=== PATIENT | male | born 1960 | race Hispanic/Latino ===

== ENCOUNTER 2019-07-01 06:05 | Inpatient (IN) | payer SELFPAY ==
[~2019-07-01] VITALS: Ht 167.6 cm; Wt 78.7 kg
[2019-07-01 00:03] VITALS: BP 149/88
[2019-07-01 07:00] VITALS: BP 125/73
[2019-07-01 08:10] LABS: BASOPHILS % (AUTO) 0.4 % (0.0-5.0); HEMATOCRIT 32.7 % (42-54); LYMPHOCYTES % (AUTO) 5.3 % (21.0-51.0); MEAN CORPUSCULAR HEMOGLOBIN 31.1 pg (27.0-33.0); MEAN CORPUSCULAR HGB CONC 32.7 g/dL (32.0-36.0); MEAN CORPUSCULAR VOLUME 95.1 fL (79-99); MONOCYTES % (AUTO) 4.2 % (3.0-13.0); NEUTROPHILS % (AUTO) 89.6 % (40.0-77.0); PLATELET COUNT (AUTO) 201 K/uL (130-400); RED BLOOD CELL COUNT(AUTO) 3.44 MIL/uL (4.50-6.20); RED CELL DISTRIBUTION WIDTH 12.8 % (11.0-15.5); WHITE BLOOD COUNT (AUTO) 16.7 K/uL (4.8-10.8)
[2019-07-01 08:28] LABS: CREATININE 1.7 mg/dL (0.5-1.5); POTASSIUM 5.4 mmol/L (3.5-5.1)
[2019-07-01 08:34] LABS: ALBUMIN 3.3 g/dL (3.5-5.0); BILIRUBIN,TOTAL 0.2 mg/dL (0.2-1.0); TOTAL PROTEIN, SERUM 5.9 g/dL (6.0-8.3)
[2019-07-01 08:39] LABS: INR 0.94 (0.85-1.15); PARTIAL THROMBOPLASTIN TIME 26.8 SEC (26.3-35.5); PROTHROMBIN TIME 9.9 SEC (9.6-11.6)
[2019-07-01] MEDS: GUAIFENESIN-DM 200/20 MG 10 ML PO PRN ×3 (08:47→22:57)
[2019-07-01] MEDS ORDERED: LORA0.5T83 PO (09:17)
[2019-07-01] MEDS ORDERED: ATOR20TA65 PO (09:17)
[2019-07-01] MEDS ORDERED: ATEN50TA PO (09:17)
[2019-07-01] MEDS ORDERED: NAPR-1023 PO (09:17)
[2019-07-01] MEDS ORDERED: LISI40TA4 PO (09:17)
[2019-07-01] MEDS ORDERED: ONDA8TAB5 PO (09:17)
[2019-07-01] MEDS ORDERED: METF-526 PO (09:17)
[2019-07-01] MEDS ORDERED: DIPH1TAB24 PO (09:17)
[2019-07-01] MEDS ORDERED: AMLO10TA7 PO (09:17)
[2019-07-01] MEDS ORDERED: CITA10TA13 PO (09:17)
[2019-07-01 11:00] VITALS: BP 153/83
[2019-07-01] MEDS: FAMOTIDINE/PF 20 MG/2 ML VIAL IV SCH ×2 (12:37→20:57)
[2019-07-01] MEDS: SODIUM CHLORIDE 0.9% 1000ML 1,000 ML IV SCH ×2 (12:38→23:44)
[2019-07-01] MEDS: ZOSYN 3.375GM+NS 50ML 50 ML IV SCH ×2 (12:38→17:03)
[2019-07-01] MEDS: INSULIN HUMULIN R 100 UNIT/ML 3ML SQ SCH ×3 (12:45→20:31)
[2019-07-01] MEDS: HYDROMORPHONE 1 MG/1 ML AMP IVP PRN ×2 (12:48→17:15)
[2019-07-01 16:00] VITALS: BP 155/79
[2019-07-01] MEDS ORDERED: LORAZEPAM 0.5 MG TABLET PO PRN (16:15)
[2019-07-01] MEDS ORDERED: IPRATROPIUM/ALBUTEROL SULFATE 3 ML SOLUTION IH PRN (17:15)
[2019-07-01] MEDS ORDERED: IPRATROPIUM/ALBUTEROL SULFATE 3 ML SOLUTION IH ONE (17:19)
[2019-07-01] MEDS ORDERED: METHYLPREDNISOLONE SOD SUCC 40MG/ML 1ML ONE (17:20)
[2019-07-01] MEDS: IPRATROPIUM/ALBUTEROL SULFATE 3 ML SOLUTION IH SCH ×2 (17:22→22:17)
[2019-07-01] MEDS ORDERED: EPINEPHRINE 1 MG/ML AMPULE IM SCH (17:30)
[2019-07-01] MEDS ORDERED: METHYLPREDNISOLONE SOD SUCC 40MG/ML 1ML IVP SCH (17:30)
[2019-07-01] MEDS ORDERED: DiphenhydrAMINE HCL 50 MG/ML VIAL IV SCH (17:45)
[2019-07-01 19:15] VITALS: BP 175/85
[2019-07-01] MEDS ORDERED: DOXYCYCLINE HYCLATE 100 MG TABLET PO SCH (21:00)
[2019-07-01] MEDS: FLUTICASONE PROPIONATE 50MCG/SPRAY 16 GM BOTTLE EN SCH (21:05)
[2019-07-01 21:15] LABS: HEMOGLOBIN A1C 9.2 % (4.0-6.0)
[2019-07-01] MEDS ORDERED: HYDRALAZINE HCL 20 MG/ML VIAL IV PRN (21:15)
[2019-07-02] MEDS: IPRATROPIUM/ALBUTEROL SULFATE 3 ML SOLUTION IH SCH ×6 (02:18→21:12)
[2019-07-02 04:08] VITALS: BP 150/85
[2019-07-02 06:39] LABS: BASOPHILS % (AUTO) 0.2 % (0.0-5.0); LYMPHOCYTES % (AUTO) 4.9 % (21.0-51.0); MEAN CORPUSCULAR HEMOGLOBIN 31.5 pg (27.0-33.0); MEAN CORPUSCULAR HGB CONC 33.6 g/dL (32.0-36.0); MONOCYTES % (AUTO) 2.5 % (3.0-13.0); NEUTROPHILS % (AUTO) 91.9 % (40.0-77.0); PLATELET COUNT (AUTO) 193 K/uL (130-400); RED BLOOD CELL COUNT(AUTO) 2.98 MIL/uL (4.50-6.20); RED CELL DISTRIBUTION WIDTH 12.8 % (11.0-15.5); WHITE BLOOD COUNT (AUTO) 12.8 K/uL (4.8-10.8)
[2019-07-02] MEDS: INSULIN HUMULIN R 100 UNIT/ML 3ML SQ SCH ×4 (06:43→21:03)
[2019-07-02 08:00] VITALS: BP 154/84
[2019-07-02 09:05] LABS: CREATININE 1.8 mg/dL (0.5-1.5); POTASSIUM 4.4 mmol/L (3.5-5.1)
[2019-07-02] MEDS: FAMOTIDINE/PF 20 MG/2 ML VIAL IV SCH ×2 (09:39→20:48)
[2019-07-02] MEDS: AMLODIPINE BESYLATE 5 MG TAB PO SCH (09:40)
[2019-07-02] MEDS: ATENOLOL 50 MG TABLET PO SCH (09:40)
[2019-07-02] MEDS: ATORVASTATIN CALCIUM 20 MG TABLET PO SCH (09:41)
[2019-07-02] MEDS: CITALOPRAM 20 MG TABLET PO SCH (09:41)
[2019-07-02] MEDS: FLUTICASONE PROPIONATE 50MCG/SPRAY 16 GM BOTTLE EN SCH ×2 (09:41→20:51)
[2019-07-02] MEDS ORDERED: INSULIN GLARGINE 100 UNITS/ML 10 ML VIAL SQ SCH (10:00)
[2019-07-02] MEDS: GUAIFENESIN/DEXTROMETHORPHAN 1 EACH TAB.SR.12H PO SCH ×2 (10:16→20:48)
[2019-07-02 11:29] VITALS: BP 156/85
[2019-07-02] MEDS: SODIUM CHLORIDE 0.9% 1000ML 1,000 ML IV SCH (11:47)
--- NOTE | 2019-07-02 14:35 | NUR ---
DC PLAN MEET WITH PATIENT IN ROOM. PER PATIENT, INDEPENDENT WITH ADLS, MOVED FROM [place] AND [facility]IVES WITH [place]IECE, DENIES PROVIDER OR COMMUNITY SERVICES IN USE AND FEELS SAFE TO RETURN HOME ONCE DISCHARGED. Addendum: 07/02/19 at 1440 by ANALISA CARMONA RN CM Amended: Links added.
[2019-07-02 16:00] VITALS: BP 154/82
[2019-07-02] MEDS: LACTULOSE 20 GM/30 ML UDCUP PO PRN (20:48)
[2019-07-02 21:14] VITALS: BP 159/92
[2019-07-02 23:43] VITALS: BP 151/87
[2019-07-03] MEDS: IPRATROPIUM/ALBUTEROL SULFATE 3 ML SOLUTION IH SCH ×5 (01:04→22:04)
[2019-07-03] MEDS: SODIUM CHLORIDE 0.9% 1000ML 1,000 ML IV SCH (01:58)
[2019-07-03 04:27] VITALS: BP 138/76
[2019-07-03 05:07] LABS: BASOPHILS % (AUTO) 0.7 % (0.0-5.0); HEMATOCRIT 26.8 % (42-54); LYMPHOCYTES % (AUTO) 18.4 % (21.0-51.0); MEAN CORPUSCULAR HEMOGLOBIN 31.2 pg (27.0-33.0); MEAN CORPUSCULAR HGB CONC 33.2 g/dL (32.0-36.0); NEUTROPHILS % (AUTO) 73.1 % (40.0-77.0); PLATELET COUNT (AUTO) 213 K/uL (130-400); RED BLOOD CELL COUNT(AUTO) 2.85 MIL/uL (4.50-6.20); RED CELL DISTRIBUTION WIDTH 13.1 % (11.0-15.5); WHITE BLOOD COUNT (AUTO) 11.2 K/uL (4.8-10.8)
[2019-07-03 05:15] LABS: CREATININE 1.6 mg/dL (0.5-1.5); POTASSIUM 4.1 mmol/L (3.5-5.1)
[2019-07-03] MEDS: INSULIN HUMULIN R 100 UNIT/ML 3ML SQ SCH ×4 (06:06→21:51)
[2019-07-03] MEDS: LACTULOSE 20 GM/30 ML UDCUP PO PRN (07:02)
[2019-07-03 07:56] VITALS: BP 148/87
[2019-07-03] MEDS: ATORVASTATIN CALCIUM 20 MG TABLET PO SCH (08:49)
[2019-07-03] MEDS: ATENOLOL 50 MG TABLET PO SCH (08:50)
[2019-07-03] MEDS: CITALOPRAM 20 MG TABLET PO SCH (08:51)
[2019-07-03] MEDS: FAMOTIDINE/PF 20 MG/2 ML VIAL IV SCH ×2 (08:56→21:41)
[2019-07-03] MEDS: GUAIFENESIN/DEXTROMETHORPHAN 1 EACH TAB.SR.12H PO SCH ×2 (09:00→21:41)
[2019-07-03] MEDS: AMLODIPINE BESYLATE 5 MG TAB PO SCH (09:01)
[2019-07-03] MEDS: FLUTICASONE PROPIONATE 50MCG/SPRAY 16 GM BOTTLE EN SCH ×2 (09:02→21:42)
[2019-07-03 11:35] VITALS: BP 153/93
[2019-07-03 15:39] VITALS: BP 148/96
[2019-07-03] MEDS: GUAIFENESIN-DM 200/20 MG 10 ML PO PRN (18:12)
[2019-07-03 19:00] VITALS: BP 158/93
[2019-07-03 23:00] VITALS: BP 158/84
[2019-07-04] MEDS: IPRATROPIUM/ALBUTEROL SULFATE 3 ML SOLUTION IH SCH ×4 (02:00→14:19)
[2019-07-04 03:00] VITALS: BP 152/86
[2019-07-04] MEDS: INSULIN HUMULIN R 100 UNIT/ML 3ML SQ SCH ×2 (06:14→13:25)
[2019-07-04 07:09] LABS: BASOPHILS % (AUTO) 0.8 % (0.0-5.0); HEMATOCRIT 30.2 % (42-54); LYMPHOCYTES % (AUTO) 13.2 % (21.0-51.0); MEAN CORPUSCULAR HEMOGLOBIN 32.1 pg (27.0-33.0); MEAN CORPUSCULAR HGB CONC 34.4 g/dL (32.0-36.0); MEAN CORPUSCULAR VOLUME 93.2 fL (79-99); MONOCYTES % (AUTO) 6.1 % (3.0-13.0); NEUTROPHILS % (AUTO) 79.2 % (40.0-77.0); PLATELET COUNT (AUTO) 227 K/uL (130-400); RED BLOOD CELL COUNT(AUTO) 3.24 MIL/uL (4.50-6.20); WHITE BLOOD COUNT (AUTO) 12.5 K/uL (4.8-10.8)
[2019-07-04 08:00] VITALS: BP 165/96
[2019-07-04] MEDS: ATORVASTATIN CALCIUM 20 MG TABLET PO SCH (08:32)
[2019-07-04] MEDS: GUAIFENESIN/DEXTROMETHORPHAN 1 EACH TAB.SR.12H PO SCH (08:32)
[2019-07-04] MEDS: ATENOLOL 50 MG TABLET PO SCH (08:33)
[2019-07-04] MEDS: AMLODIPINE BESYLATE 5 MG TAB PO SCH (08:38)
[2019-07-04] MEDS: FLUTICASONE PROPIONATE 50MCG/SPRAY 16 GM BOTTLE EN SCH (08:39)
[2019-07-04] MEDS: CITALOPRAM 20 MG TABLET PO SCH (08:39)
[2019-07-04] MEDS: FAMOTIDINE/PF 20 MG/2 ML VIAL IV SCH (08:39)
[2019-07-04 11:40] VITALS: BP 166/92
[2019-07-04] MEDS ORDERED: HYDRALAZINE HCL 25 MG TABLET PO SCH (12:15)
[2019-07-04] MEDS: GUAIFENESIN-DM 200/20 MG 10 ML PO PRN (13:34)
[2019-07-04] MEDS ORDERED: ALBU6.7H9 IH (15:35)
[2019-07-04] MEDS ORDERED: HYDR-4153 PO (15:35)
[2019-07-04 16:00] VITALS: BP 174/91
== END 2019-07-04 17:50 | disposition home or self-care (01) | DRG 202 ==
LOC: 3DH 07:03
PROVIDERS: ADMIT Internal Medicine; ATTEND Internal Medicine
DX: J21.0 Acute bronchiolitis due to respiratory syncytial virus (principal); N17.9 Acute kidney failure, unspecified; T38.0X5A Adverse effect of glucocorticoids and synthetic analogues, initial encounter; S30.1XXA Contusion of abdominal wall, initial encounter; E11.65 Type 2 diabetes mellitus with hyperglycemia; E87.5 Hyperkalemia; E78.5 Hyperlipidemia, unspecified; I10 Essential (primary) hypertension; X58.XXXA Exposure to other specified factors, initial encounter; Z88.8 Allergy status to other drugs, medicaments and biological substances; Z88.6 Allergy status to analgesic agent; Z91.041 Radiographic dye allergy status; Y92.89 Other specified places as the place of occurrence of the external cause; Y93.89 Activity, other specified; Y99.8 Other external cause status
CPT/HCPCS: 36415; 71045; 80048; 80053; 82948; 83036; 84145; 85025; 85610; 85730; 86850; 86900; 86901; 87486; 87581; 87633; 87798; 87804; 94640; 94664; G0378; J0171; J1170; J1200; J1815; J2543; J2920; J3490; J7030

== ENCOUNTER 2020-12-03 16:04 | Inpatient (IN) | payer OTHER ==
[~2020-12-03] VITALS: Ht 170.2 cm; Wt 72.9 kg
[~2020-12-03 16:04] MED LIST: ALBU6.7H9 IH; AMLO-258 PO; ATEN50TA PO; ATOR20TA65 PO; CITA10TA13 PO; DIPH1TAB24 PO; HYDR-4153 PO; LORA0.5T83 PO; METF-526 PO; ONDA8TAB5 PO
[2020-12-03 17:00] LABS: BASOPHILS % (AUTO) 0.8 % (0.0-5.0); EOSINOPHILS % (AUTO) 2.2 % (0.0-8.0); HEMATOCRIT 49.9 % (42-54); LYMPHOCYTES % (AUTO) 10.6 % (21.0-51.0); MEAN CORPUSCULAR HEMOGLOBIN 30.9 pg (27.0-33.0); MEAN CORPUSCULAR HGB CONC 33.1 g/dL (32.0-36.0); MEAN CORPUSCULAR VOLUME 93.4 fL (79-99); NEUTROPHILS % (AUTO) 81.7 % (40.0-77.0); PLATELET COUNT (AUTO) 283 K/uL (130-400); RED BLOOD CELL COUNT(AUTO) 5.34 MIL/uL (4.50-6.20); RED CELL DISTRIBUTION WIDTH 13.2 % (11.0-15.5); WHITE BLOOD COUNT (AUTO) 17.1 K/uL (4.8-10.8)
[2020-12-03 17:12] LABS: ALBUMIN 4.5 g/dL (3.5-5.0); CREATININE 2.5 mg/dL (0.5-1.5)
[2020-12-03 17:16] LABS: BILIRUBIN,TOTAL 0.4 mg/dL (0.2-1.0); TOTAL PROTEIN, SERUM 8.7 g/dL (6.0-8.3)
[2020-12-03 17:21] LABS: POTASSIUM 6.2 mmol/L (3.5-5.1)
[2020-12-03 17:25] LABS: APPEARANCE,URINE Cloudy (CLEAR); BILIRUBIN,URINE Small (NEGATIVE); COLOR,URINE Dark Yellow (YELLOW); GLUCOSE, URINE (UA) Negative (NEGATIVE); KETONES,URINE Trace mg/dL (NEGATIVE); LEUKOCYTE ESTERASE ,URINE Negative (NEGATIVE); NITRATE,URINE Negative (NEGATIVE); OCCULT BLOOD,URINE Negative (NEGATIVE); PROTEIN,URINE POS 2+ mg/dL (NEGATIVE)
[2020-12-03 17:36] VITALS: BP 127/78
[2020-12-03 17:41] LABS: HYALINE CASTS, URINE 26-50 /LPF (0-1 /LPF)
[2020-12-03 17:42] LABS: BACTERIA,URINE Few /HPF (None Seen); RBC,URINE None Seen /HPF (0-1); SQUAMOUS EPITHELIAL CELL,UR 0-2 /HPF (0-2); WBC,URINE 0-1 /HPF (0-1)
[2020-12-03] MEDS ORDERED: ONDANSETRON HCL 4 MG/2 ML VIAL IVP ONE (18:45)
[2020-12-03] MEDS ORDERED: LACTATED RINGERS 1000ML 1,000 ML IV ONE (18:45)
[2020-12-03] MEDS ORDERED: MORPHINE 4 MG SYG (4MG/1ML) IVP ONE (18:45)
[2020-12-03] MEDS ORDERED: PANTOPRAZOLE 40 MG/VIAL IVP ONE (18:45)
[2020-12-03 19:00] VITALS: BP 124/75
[2020-12-03] MEDS ORDERED: SODIUM BICARB 8.4% 50ML SYRINGE IVP SCH (19:00)
[2020-12-03] MEDS ORDERED: LEVOFLOXACIN 500 MG/D5W 100 ML IV ONE (19:00)
[2020-12-03] MEDS ORDERED: LEVOFLOXACIN 500 MG/D5W 100 ML 100 ML IV ONE (19:15)
[2020-12-03] MEDS: CALCIUM GLUCONATE 1 GM/10 ML VIAL IV SCH (19:40)
[2020-12-03] MEDS ORDERED: SODIUM BICARB 50MEQ 50ML VIAL IV ONE (20:15)
[2020-12-03] MEDS ORDERED: ONDANSETRON HCL 4 MG/2 ML VIAL IV PRN (22:00)
[2020-12-03] MEDS ORDERED: ACETAMINOPHEN 325 MG TAB PO PRN ×2 (22:00)
[2020-12-03] MEDS ORDERED: LEVOFLOXACIN 500 MG/D5W 100 ML 100 ML IV SCH (23:15)
[2020-12-04] VITALS (8 sets, daily range): BP systolic 118–153; BP diastolic 63–74
[2020-12-04] MEDS: SODIUM CHLORIDE 0.9% 1000ML 1,000 ML IV SCH ×3 (00:23→21:01)
[2020-12-04] MEDS ORDERED: MAGNESIUM 2GM PREMIX 50ML 50 ML IV PRN (01:45)
[2020-12-04] MEDS ORDERED: PANT40TA55 PO (04:05)
[2020-12-04] MEDS ORDERED: LISI40TA9 PO (04:06)
[2020-12-04] MEDS ORDERED: AMLO10TA4 PO (04:07)
[2020-12-04 04:34] LABS: BASOPHILS % (AUTO) 0.7 % (0.0-5.0); EOSINOPHILS % (AUTO) 2.6 % (0.0-8.0); LYMPHOCYTES % (AUTO) 24.5 % (21.0-51.0); MEAN CORPUSCULAR HEMOGLOBIN 30.6 pg (27.0-33.0); MEAN CORPUSCULAR HGB CONC 33.3 g/dL (32.0-36.0); MEAN CORPUSCULAR VOLUME 91.9 fL (79-99); MONOCYTES % (AUTO) 6.4 % (3.0-13.0); NEUTROPHILS % (AUTO) 65.4 % (40.0-77.0); PLATELET COUNT (AUTO) 227 K/uL (130-400); RED BLOOD CELL COUNT(AUTO) 4.57 MIL/uL (4.50-6.20); RED CELL DISTRIBUTION WIDTH 13.3 % (11.0-15.5); WHITE BLOOD COUNT (AUTO) 9.9 K/uL (4.8-10.8)
[2020-12-04 04:52] LABS: ALBUMIN 3.2 g/dL (3.5-5.0); BILIRUBIN,TOTAL 0.4 mg/dL (0.2-1.0); CREATININE 1.9 mg/dL (0.5-1.5); POTASSIUM 4.6 mmol/L (3.5-5.1); TOTAL PROTEIN, SERUM 6.4 g/dL (6.0-8.3)
[2020-12-04] MEDS: CALCIUM GLUCONATE 1 GM/10 ML VIAL IV SCH (07:49)
[2020-12-04] MEDS ORDERED: PANTOPRAZOLE 40 MG/VIAL IVP SCH (09:00)
[2020-12-04] MEDS ORDERED: AMLODIPINE BESYLATE 5 MG TAB PO SCH (12:27)
[2020-12-04] MEDS: ATORVASTATIN CALCIUM 20 MG TABLET PO SCH (21:01)
[2020-12-04] MEDS: LACTOBACILLUS RHAMNOSUS GG 1 EACH CAP.SPRINK PO SCH (21:01)
[2020-12-04] MEDS: LEVOFLOXACIN 500 MG/D5W 100 ML 100 ML IV SCH (21:01)
[2020-12-04] MEDS ORDERED: LEVOFLOXACIN 250 MG/D5W 50ML 50 ML IV SCH (22:00)
[2020-12-05 03:13] VITALS: BP 150/72
[2020-12-05 03:39] LABS: BASOPHILS % (AUTO) 0.9 % (0.0-5.0); EOSINOPHILS % (AUTO) 3.9 % (0.0-8.0); LYMPHOCYTES % (AUTO) 28.2 % (21.0-51.0); MEAN CORPUSCULAR HEMOGLOBIN 30.5 pg (27.0-33.0); MEAN CORPUSCULAR HGB CONC 33.7 g/dL (32.0-36.0); MEAN CORPUSCULAR VOLUME 90.7 fL (79-99); MONOCYTES % (AUTO) 7.1 % (3.0-13.0); NEUTROPHILS % (AUTO) 59.5 % (40.0-77.0); PLATELET COUNT (AUTO) 224 K/uL (130-400); RED BLOOD CELL COUNT(AUTO) 4.19 MIL/uL (4.50-6.20); RED CELL DISTRIBUTION WIDTH 13.2 % (11.0-15.5); WHITE BLOOD COUNT (AUTO) 7.4 K/uL (4.8-10.8)
[2020-12-05 03:53] LABS: ALBUMIN 3.1 g/dL (3.5-5.0); BILIRUBIN,TOTAL 0.5 mg/dL (0.2-1.0); CREATININE 1.8 mg/dL (0.5-1.5); POTASSIUM 4.7 mmol/L (3.5-5.1); TOTAL PROTEIN, SERUM 5.9 g/dL (6.0-8.3)
[2020-12-05] MEDS: SODIUM CHLORIDE 0.9% 1000ML 1,000 ML IV SCH ×2 (05:15→14:32)
[2020-12-05 08:00] VITALS: BP 118/82
[2020-12-05] MEDS: LACTOBACILLUS RHAMNOSUS GG 1 EACH CAP.SPRINK PO SCH ×2 (08:45→20:54)
[2020-12-05] MEDS: AMLODIPINE BESYLATE 5 MG TAB PO SCH (08:45)
[2020-12-05] MEDS ORDERED: METF-526 PO (10:00)
[2020-12-05] MEDS ORDERED: AMLO10TA4 PO (10:00)
[2020-12-05] MEDS ORDERED: LACT1CAP70 PO (10:00)
[2020-12-05] MEDS ORDERED: LISI40TA9 PO (10:00)
[2020-12-05] MEDS ORDERED: ATOR20TA65 PO (10:02)
[2020-12-05 12:00] VITALS: BP 170/70
[2020-12-05] MEDS: CALCIUM GLUCONATE 1 GM/10 ML VIAL IV SCH (12:58)
[2020-12-05 16:00] VITALS: BP 145/91
[2020-12-05 19:53] VITALS: BP 137/74
[2020-12-05] MEDS: LEVOFLOXACIN 500 MG/D5W 100 ML 100 ML IV SCH (20:54)
[2020-12-05] MEDS: ATORVASTATIN CALCIUM 20 MG TABLET PO SCH (20:54)
[2020-12-05] MEDS ORDERED: D5W IV SCH (23:15)
[2020-12-05] MEDS ORDERED: LEVOFLOXACIN IV SCH (23:15)
[2020-12-06 00:01] VITALS: BP 172/84
[2020-12-06 04:15] VITALS: BP 161/78
[2020-12-06 04:31] LABS: BASOPHILS % (AUTO) 0.9 % (0.0-5.0); EOSINOPHILS % (AUTO) 4.5 % (0.0-8.0); HEMATOCRIT 37.9 % (42-54); MEAN CORPUSCULAR HEMOGLOBIN 30.8 pg (27.0-33.0); MEAN CORPUSCULAR HGB CONC 34.3 g/dL (32.0-36.0); MEAN CORPUSCULAR VOLUME 89.8 fL (79-99); MONOCYTES % (AUTO) 7.9 % (3.0-13.0); NEUTROPHILS % (AUTO) 55.4 % (40.0-77.0); PLATELET COUNT (AUTO) 225 K/uL (130-400); RED BLOOD CELL COUNT(AUTO) 4.22 MIL/uL (4.50-6.20); WHITE BLOOD COUNT (AUTO) 6.6 K/uL (4.8-10.8)
[2020-12-06 04:53] LABS: ALBUMIN 3.3 g/dL (3.5-5.0); BILIRUBIN,TOTAL 0.4 mg/dL (0.2-1.0); CREATININE 1.7 mg/dL (0.5-1.5); POTASSIUM 4.4 mmol/L (3.5-5.1); TOTAL PROTEIN, SERUM 6.3 g/dL (6.0-8.3)
[2020-12-06 08:00] VITALS: BP 166/83
[2020-12-06] MEDS: LACTOBACILLUS RHAMNOSUS GG 1 EACH CAP.SPRINK PO SCH (09:08)
[2020-12-06] MEDS: AMLODIPINE BESYLATE 5 MG TAB PO SCH (09:08)
[2020-12-06] MEDS: SODIUM CHLORIDE 0.9% 1000ML 1,000 ML IV SCH ×2 (09:10→11:15)
[2020-12-06 13:00] VITALS: BP 170/77
[2020-12-06 15:00] VITALS: BP 150/78
[2020-12-06] MEDS ORDERED: HYDRALAZINE HCL 10 MG TABLET ONE (15:24)
[2020-12-06] MEDS ORDERED: HYDRALAZINE HCL 10 MG TABLET PO SCH (15:35)
[2020-12-06 15:48] LABS: HEMOGLOBIN A1C 10.7 % (4.0-6.0)
[2020-12-06] MEDS ORDERED: HYDR-3420 PO (16:02)
[2020-12-08] MEDS ORDERED: DEXTROSE 50%-WATER 50 ML DISP.SYRIN IV ONE (10:20)
== END 2020-12-06 16:45 | disposition home or self-care (01) | DRG 392 ==
LOC: EDH 16:04 → EDHIP 16:05 → OBSVTOIN 16:05 → 2DH 12-04 01:12
PROVIDERS: ADMIT Family Medicine; ATTEND Family Medicine
DX: K29.70 Gastritis, unspecified, without bleeding (principal); N17.9 Acute kidney failure, unspecified; E11.9 Type 2 diabetes mellitus without complications; K52.9 Noninfective gastroenteritis and colitis, unspecified; E87.5 Hyperkalemia; E86.0 Dehydration; E78.00 Pure hypercholesterolemia, unspecified; E78.5 Hyperlipidemia, unspecified; E87.6 Hypokalemia; I25.10 Atherosclerotic heart disease of native coronary artery without angina pectoris; Z82.5 Family history of asthma and other chronic lower respiratory diseases; Z82.49 Family history of ischemic heart disease and other diseases of the circulatory system; Z88.8 Allergy status to other drugs, medicaments and biological substances; Z91.041 Radiographic dye allergy status; R00.1 Bradycardia, unspecified
CPT/HCPCS: 36415; 74176; 76705; 80053; 81001; 82948; 83036; 83605; 83630; 83690; 83735; 84132; 84145; 84484; 85025; 86677; 86701; 87040; 87046; 87177; 87390; 93005; C9113; G0378; J0610; J1956; J2270; J2405; J3475; J3490; J7030; J7120

== ENCOUNTER 2021-01-03 10:32 | Emergency (ER) | payer SELFPAY ==
[~2021-01-03] VITALS: Ht 170.2 cm; Wt 70.3 kg
[~2021-01-03 10:32] MED LIST changes: -ALBU6.7H9 IH; -AMLO-258 PO; +AMLO10TA4 PO; -ATEN50TA PO; -CITA10TA13 PO; -DIPH1TAB24 PO; +HYDR-3420 PO; -HYDR-4153 PO; +LACT1CAP70 PO; +LISI40TA9 PO; -LORA0.5T83 PO; -ONDA8TAB5 PO
[2021-01-03 10:33] VITALS: BP 177/94
[2021-01-03 11:11] LABS: BASOPHILS % (AUTO) 0.9 % (0.0-5.0); EOSINOPHILS % (AUTO) 1.3 % (0.0-8.0); HEMATOCRIT 46.6 % (42-54); LYMPHOCYTES % (AUTO) 13.7 % (21.0-51.0); MEAN CORPUSCULAR HEMOGLOBIN 31.2 pg (27.0-33.0); MEAN CORPUSCULAR HGB CONC 34.8 g/dL (32.0-36.0); MEAN CORPUSCULAR VOLUME 89.8 fL (79-99); MONOCYTES % (AUTO) 5.9 % (3.0-13.0); NEUTROPHILS % (AUTO) 77.7 % (40.0-77.0); PLATELET COUNT (AUTO) 243 K/uL (130-400); RED BLOOD CELL COUNT(AUTO) 5.19 MIL/uL (4.50-6.20); RED CELL DISTRIBUTION WIDTH 12.2 % (11.0-15.5); WHITE BLOOD COUNT (AUTO) 13.6 K/uL (4.8-10.8)
[2021-01-03 11:18] LABS: CREATININE 1.3 mg/dL (0.5-1.5); POTASSIUM 4.9 mmol/L (3.5-5.1)
[2021-01-03 11:23] LABS: BILIRUBIN,TOTAL 0.6 mg/dL (0.2-1.0); TOTAL PROTEIN, SERUM 8.3 g/dL (6.0-8.3)
[2021-01-03 12:15] VITALS: BP 156/92
[2021-01-03] MEDS ORDERED: PANTOPRAZOLE 40 MG/VIAL IVP ONE (14:30)
[2021-01-03] MEDS ORDERED: ACETAMINOPHEN 325 MG TAB PO ONE (14:30)
[2021-01-03] MEDS ORDERED: LIDOCAINE HCL 2% VISCOUS 15 ML UDCUP PO ONE (14:30)
[2021-01-03] MEDS ORDERED: 0.9%NACL 1000ML 1,000 ML IV ONE (14:30)
[2021-01-03] MEDS ORDERED: ONDANSETRON 4MG INJ IVP ONE ×2 (14:30→23:00)
[2021-01-03] MEDS ORDERED: MORPHINE 4 MG SYG IVP ONE (14:30)
[2021-01-03 14:39] VITALS: BP 162/88
[2021-01-03] MEDS ORDERED: 0.9%NACL 50ML 50 ML IV ONE (15:20)
[2021-01-03] MEDS ORDERED: CEFTRIAXONE 1G VIAL IVP ONE (15:45)
[2021-01-03] MEDS ORDERED: MAG/ALUM/SIMETH 30 ML UDCUP ONE (15:47)
[2021-01-03 17:01] VITALS: BP 158/78
[2021-01-03 17:45] LABS: APPEARANCE,URINE Cloudy (CLEAR); BILIRUBIN,URINE Negative (NEGATIVE); COLOR,URINE Yellow (YELLOW); GLUCOSE, URINE (UA) >=1000 mg/dL (NEGATIVE); KETONES,URINE Trace mg/dL (NEGATIVE); LEUKOCYTE ESTERASE ,URINE Negative (NEGATIVE); NITRATE,URINE Negative (NEGATIVE); OCCULT BLOOD,URINE Negative (NEGATIVE); PH,URINE 5.5 (5.0-8.0); PROTEIN,URINE POS 1+ mg/dL (NEGATIVE)
[2021-01-03 18:10] VITALS: BP 153/78
[2021-01-03 18:26] LABS: BACTERIA,URINE Rare /HPF (None Seen); RBC,URINE 0-1 /HPF (0-1); SQUAMOUS EPITHELIAL CELL,UR Rare /HPF (0-2); WBC,URINE 0-1 /HPF (0-1)
[2021-01-03 22:47] VITALS: BP 157/73
[2021-01-03] MEDS ORDERED: MORPHINE 4 MG SYG IV ONE (23:00)
== END 2021-01-04 02:24 | disposition home or self-care (01) ==
LOC: EDH 10:32
DX: K56.609 Unspecified intestinal obstruction, unspecified as to partial versus complete obstruction (principal); K55.059 Acute (reversible) ischemia of intestine, part and extent unspecified; Z20.822 Contact with and (suspected) exposure to COVID-19; I12.9 Hypertensive chronic kidney disease with stage 1 through stage 4 chronic kidney disease, or unspecified chronic kidney disease; E11.22 Type 2 diabetes mellitus with diabetic chronic kidney disease; N18.9 Chronic kidney disease, unspecified; Z98.890 Other specified postprocedural states; Z91.041 Radiographic dye allergy status; Z88.8 Allergy status to other drugs, medicaments and biological substances; Z79.899 Other long term (current) drug therapy
CPT/HCPCS: 36415; 74176; 80053; 81001; 82150; 82550; 83605; 83690; 84484; 85025; 87088; 87635; 93005; 96361; 96374; 96375; 96376; 99285; C9113; C9803; J0696; J2270 ×2; J2405 ×2; J7030

== ENCOUNTER 2021-03-08 09:28 | Inpatient (IN) | payer OTHER, SELFPAY ==
[~2021-03-08] VITALS: Ht 170.2 cm; Wt 72.6 kg
[2021-03-08 09:49] VITALS: BP 135/74
[2021-03-08 09:55] LABS: BASOPHILS % (AUTO) 0.8 % (0.0-5.0); EOSINOPHILS % (AUTO) 1.5 % (0.0-8.0); HEMATOCRIT 42.2 % (42-54); MEAN CORPUSCULAR HEMOGLOBIN 31.1 pg (27.0-33.0); MEAN CORPUSCULAR HGB CONC 34.4 g/dL (32.0-36.0); MEAN CORPUSCULAR VOLUME 90.6 fL (79-99); MONOCYTES % (AUTO) 5.2 % (3.0-13.0); NEUTROPHILS % (AUTO) 80.8 % (40.0-77.0); PLATELET COUNT (AUTO) 299 K/uL (130-400); RED BLOOD CELL COUNT(AUTO) 4.66 MIL/uL (4.50-6.20); RED CELL DISTRIBUTION WIDTH 13.1 % (11.0-15.5); WHITE BLOOD COUNT (AUTO) 16.3 K/uL (4.8-10.8)
[2021-03-08 09:59] LABS: APPEARANCE,URINE Clear (CLEAR); BILIRUBIN,URINE Negative (NEGATIVE); COLOR,URINE Yellow (YELLOW); GLUCOSE, URINE (UA) >=1000 mg/dL (NEGATIVE); KETONES,URINE Negative (NEGATIVE); LEUKOCYTE ESTERASE ,URINE Negative (NEGATIVE); NITRATE,URINE Negative (NEGATIVE); OCCULT BLOOD,URINE Negative (NEGATIVE); PH,URINE 5.5 (5.0-8.0); PROTEIN,URINE Trace mg/dL (NEGATIVE); UROBILINOGEN,URINE 0.2 mg/dL (0.2-1.0)
[2021-03-08 10:07] LABS: BACTERIA,URINE Rare /HPF (None Seen); RBC,URINE 0-1 /HPF (0-1); SQUAMOUS EPITHELIAL CELL,UR Rare /HPF (0-2); WBC,URINE 0-1 /HPF (0-1)
[2021-03-08 10:22] LABS: ALBUMIN 3.9 g/dL (3.5-5.0); BILIRUBIN,TOTAL 0.2 mg/dL (0.2-1.0); CREATININE 1.7 mg/dL (0.5-1.5); POTASSIUM 4.5 mmol/L (3.5-5.1); TOTAL PROTEIN, SERUM 7.7 g/dL (6.0-8.3)
[2021-03-08] MEDS ORDERED: FENTANYL CITRATE PF 50 MCG/1 ML 2ML VIAL IVP ONE (10:30)
[2021-03-08] MEDS ORDERED: 0.9%NACL 1000ML 1,000 ML IV ONE (10:30)
[2021-03-08] MEDS ORDERED: ONDANSETRON 4MG INJ IVP ONE (10:30)
[2021-03-08] MEDS ORDERED: FENTANYL CITRATE PF 50 MCG/1 ML 2ML VIAL IVP SCH (13:30)
[2021-03-08 15:48] LABS: PROTHROMBIN TIME 10.9 SEC (9.6-11.6)
[2021-03-08 15:49] LABS: PARTIAL THROMBOPLASTIN TIME 30.2 SEC (26.3-35.5)
[2021-03-08] MEDS ORDERED: ZOSYN 3.375GM+NS 50ML 3.38 GM in 0.9%NACL 50ML 50 ML IV SCH (16:00)
[2021-03-08] MEDS: LACTATED RINGERS 1000ML 1,000 ML IV SCH (16:13)
[2021-03-08 16:15] LABS: HEMOGLOBIN A1C 11.2 % (4.0-6.0)
[2021-03-08] MEDS ORDERED: ONDANSETRON 4MG INJ IVP PRN (16:30)
[2021-03-08] MEDS ORDERED: PHARMACY COMMUNICATION MISC SCH (16:30)
[2021-03-08 16:48] LABS: SALICYLATE 4.3 mg/dL (2.8-20.0)
[2021-03-08 16:49] LABS: ACETAMINOPHEN < 1 mcg/mL (10-29)
[2021-03-08] MEDS ORDERED: ZOSYN 3.375GM +NS 50ML IV SCH (17:00)
[2021-03-08] MEDS: INSULIN HUMULIN R 100 UNIT/ML 3ML SQ SCH ×3 (17:28→21:00)
[2021-03-08 20:49] VITALS: BP 165/80
[2021-03-08] MEDS: INSULIN GLARGINE 100 UNITS/ML 10 ML VIAL SQ SCH (21:31)
[2021-03-08] MEDS: MORPHINE 2 MG SYG IV PRN (21:56)
[2021-03-08] MEDS: METRONIDAZOLE 500MG/100ML BAG 100 ML IVPB SCH (21:56)
[2021-03-08 23:15] VITALS: BP 147/78
[2021-03-08 23:55] VITALS: BP 169/78
[2021-03-09] MEDS ORDERED: METF-527 PO (00:28)
[2021-03-09] MEDS ORDERED: PANTOPRAZOLE 40 MG/VIAL ONE (00:48)
[2021-03-09] MEDS: LACTATED RINGERS 1000ML 1,000 ML IV SCH ×3 (01:30→20:30)
[2021-03-09] MEDS: PANTOPRAZOLE 40 MG/VIAL IVP SCH ×2 (01:42→08:36)
[2021-03-09 03:20] VITALS: BP 131/82
[2021-03-09] MEDS: INSULIN HUMULIN R 100 UNIT/ML 3ML SQ SCH ×7 (05:51→20:29)
[2021-03-09] MEDS: METRONIDAZOLE 500MG/100ML BAG 100 ML IVPB SCH ×3 (05:53→20:30)
[2021-03-09 08:00] VITALS: BP 140/74
[2021-03-09] MEDS: ENOXAPARIN SODIUM 40 MG/0.4 ML SYRINGE SQ SCH (08:36)
[2021-03-09] MEDS: LISINOPRIL 10 MG TABLET PO SCH (08:36)
[2021-03-09 08:51] LABS: EOSINOPHILS % (AUTO) 2.8 % (0.0-8.0); HEMATOCRIT 38.1 % (42-54); MEAN CORPUSCULAR HEMOGLOBIN 30.8 pg (27.0-33.0); MEAN CORPUSCULAR HGB CONC 33.6 g/dL (32.0-36.0); MEAN CORPUSCULAR VOLUME 91.8 fL (79-99); MONOCYTES % (AUTO) 6.2 % (3.0-13.0); NEUTROPHILS % (AUTO) 69.5 % (40.0-77.0); PLATELET COUNT (AUTO) 254 K/uL (130-400); RED BLOOD CELL COUNT(AUTO) 4.15 MIL/uL (4.50-6.20); RED CELL DISTRIBUTION WIDTH 13.3 % (11.0-15.5); WHITE BLOOD COUNT (AUTO) 10.2 K/uL (4.8-10.8)
[2021-03-09] MEDS ORDERED: PANTOPRAZOLE 40 MG/VIAL IVP SCH (09:00)
[2021-03-09 09:18] LABS: ALBUMIN 3.1 g/dL (3.5-5.0); BILIRUBIN,TOTAL 0.4 mg/dL (0.2-1.0); CREATININE 1.4 mg/dL (0.5-1.5); CRP QUANTITATIVE 17.7 mg/L (0.00-9.0); MAGNESIUM 1.6 mg/dL (1.80-2.40); PHOSPHORUS 2.9 mg/dL (2.5-4.9); POTASSIUM 4.5 mmol/L (3.5-5.1); THYROID STIMULATING HORMONE 0.8 uIU/mL (0.36-3.74); TOTAL PROTEIN, SERUM 6.2 g/dL (6.0-8.3)
[2021-03-09 09:54] LABS: ERYTHROCYTE SEDIMENTATION RATE 25 MM/HR (0-20)
[2021-03-09 12:00] VITALS: BP 140/73
[2021-03-09 16:00] VITALS: BP 142/76
[2021-03-09 19:55] VITALS: BP 148/79
[2021-03-09] MEDS: INSULIN GLARGINE 100 UNITS/ML 10 ML VIAL SQ SCH (20:29)
[2021-03-09 23:50] VITALS: BP 136/74
[2021-03-10] MEDS: LACTATED RINGERS 1000ML 1,000 ML IV SCH (02:29)
[2021-03-10] MEDS: MORPHINE 2 MG SYG IV PRN (02:36)
[2021-03-10] MEDS ORDERED: PHARMACY COMMUNICATION MISC SCH (03:00)
[2021-03-10 04:16] VITALS: BP 124/69
[2021-03-10] MEDS: METRONIDAZOLE 500MG/100ML BAG 100 ML IVPB SCH (05:13)
[2021-03-10] MEDS: INSULIN HUMULIN R 100 UNIT/ML 3ML SQ SCH ×6 (06:24→11:43)
[2021-03-10] MEDS ORDERED: ZOSYN 3.375GM +NS 50ML IV SCH (07:15)
[2021-03-10] MEDS: PANTOPRAZOLE 40 MG/VIAL IVP SCH (07:58)
[2021-03-10] MEDS: LISINOPRIL 10 MG TABLET PO SCH (08:01)
[2021-03-10] MEDS: ENOXAPARIN SODIUM 40 MG/0.4 ML SYRINGE SQ SCH (08:02)
[2021-03-10 08:13] VITALS: BP 164/81
[2021-03-10] MEDS ORDERED: HYDROCHLOROTHIAZIDE 25 MG TABLET PO SCH (10:00)
[2021-03-10] MEDS ORDERED: INSU3INS3 SQ (10:03)
[2021-03-10] MEDS ORDERED: ATOR20TA65 PO (10:03)
[2021-03-10] MEDS ORDERED: LISI40TA9 PO (10:03)
[2021-03-10] MEDS ORDERED: PEN1DIS.48 MC (10:03)
[2021-03-10] MEDS ORDERED: HYDR25TA PO (10:03)
[2021-03-10] MEDS ORDERED: METF-527 PO (10:03)
[2021-03-10] MEDS ORDERED: PANT40TA54 PO (10:55)
[2021-03-10 11:51] VITALS: BP 135/83
[2021-03-10] MEDS ORDERED: ATORVASTATIN 20 MG TABLET PO SCH (21:00)
[2021-03-11] MEDS ORDERED: HYDROCHLOROTHIAZIDE 25 MG TABLET PO SCH (09:00)
== END 2021-03-10 13:15 | disposition home or self-care (01) | DRG 638 ==
LOC: EDH 09:28 → EDHIP 09:29 → OBSVTOIN 09:29 → 3DH 22:57
PROVIDERS: ADMIT Internal Medicine; ATTEND Internal Medicine
DX: E11.10 Type 2 diabetes mellitus with ketoacidosis without coma (principal); N17.9 Acute kidney failure, unspecified; E87.2 Acidosis; E86.1 Hypovolemia; E11.22 Type 2 diabetes mellitus with diabetic chronic kidney disease; N18.9 Chronic kidney disease, unspecified; N43.3 Hydrocele, unspecified; K21.9 Gastro-esophageal reflux disease without esophagitis; E87.6 Hypokalemia; I12.9 Hypertensive chronic kidney disease with stage 1 through stage 4 chronic kidney disease, or unspecified chronic kidney disease; Z20.822 Contact with and (suspected) exposure to COVID-19; Z88.6 Allergy status to analgesic agent; Z91.041 Radiographic dye allergy status; Z56.0 Unemployment, unspecified; Z79.4 Long term (current) use of insulin; Z79.899 Other long term (current) drug therapy; Z83.3 Family history of diabetes mellitus; Z82.5 Family history of asthma and other chronic lower respiratory diseases; Z82.49 Family history of ischemic heart disease and other diseases of the circulatory system
CPT/HCPCS: 36415; 74176; 76870; 80053; 81001; 82150; 82948; 83036; 83690; 83735; 84100; 84145; 84443; 85025; 85610; 85651; 85730; 86140; 86341; 87635; 93005; C9113; G0378; G0481; J1650; J1815; J2405; J3010; J3490; J7030; J7120

== ENCOUNTER 2021-11-04 16:29 | Emergency (ER) | payer OTHER ==
[~2021-11-04] VITALS: Ht 167.6 cm; Wt 78.5 kg
[~2021-11-04 16:29] MED LIST changes: -AMLO10TA4 PO; -HYDR-3420 PO; +HYDR25TA PO; +INSU3INS3 SQ; -LACT1CAP70 PO; -METF-526 PO; +METF-527 PO; +PANT40TA54 PO; +PEN1DIS.48 MC
[2021-11-04] MEDS ORDERED: CLONIDINE HCL 0.1 MG TABLET PO ONE (17:00)
[2021-11-04] MEDS ORDERED: ACETAMINOPHEN 500 MG TABLET PO ONE (17:00)
[2021-11-04 17:13] LABS: APPEARANCE,URINE Clear (CLEAR); BILIRUBIN,URINE Negative (NEGATIVE); COLOR,URINE Yellow (YELLOW); GLUCOSE, URINE (UA) >=1000 mg/dL (NEGATIVE); KETONES,URINE Negative (NEGATIVE); LEUKOCYTE ESTERASE ,URINE Negative (NEGATIVE); NITRATE,URINE Negative (NEGATIVE); OCCULT BLOOD,URINE Negative (NEGATIVE); PH,URINE 5.5 (5.0-8.0); PROTEIN,URINE Negative (NEGATIVE); UROBILINOGEN,URINE 0.2 mg/dL (0.2-1.0)
[2021-11-04 17:30] LABS: BACTERIA,URINE None Seen /HPF (None Seen); MUCUS,URINE None Seen LPF (None Seen); RBC,URINE 0-1 /HPF (0-1); SQUAMOUS EPITHELIAL CELL,UR 0-2 /HPF (0-2); WBC,URINE 0-1 /HPF (0-1)
[2021-11-04] MEDS ORDERED: TRAM1TAB2 PO (17:43)
[2021-11-04] MEDS ORDERED: CYCL10TA16 PO (17:44)
[2021-11-04 18:08] VITALS: BP 152/96
== END 2021-11-04 18:09 | disposition home or self-care (01) ==
LOC: EDH 16:29
DX: M51.36 Other intervertebral disc degeneration, lumbar region (principal); E11.9 Type 2 diabetes mellitus without complications; I10 Essential (primary) hypertension; F17.200 Nicotine dependence, unspecified, uncomplicated; Z88.6 Allergy status to analgesic agent; Z88.8 Allergy status to other drugs, medicaments and biological substances; Z79.84 Long term (current) use of oral hypoglycemic drugs; Z79.899 Other long term (current) drug therapy
CPT/HCPCS: 72100; 81001

== ENCOUNTER 2023-06-12 11:17 | Emergency (ER) | payer OTHER ==
[~2023-06-12] VITALS: Ht 167.6 cm; Wt 74.8 kg
[~2023-06-12 11:17] MED LIST changes: +AMLO2.5T4 PO; +HYDR12.54 PO; -HYDR25TA PO; +INSLAN SQ; -INSU3INS3 SQ; +METF-444 PO; -METF-527 PO; +TRAM1TAB2 PO
[2023-06-12] MEDS ORDERED: LABETALOL 20MG SYG IV ONE ×2 (11:38→12:30)
[2023-06-12 11:50] LABS: BASOPHILS # (AUTO) 0.11 K/uL (0.00-0.20); BASOPHILS % (AUTO) 1.2 % (0.0-5.0); EOSINOPHILS # (AUTO) 0.23 K/uL (0.00-0.70); EOSINOPHILS % (AUTO) 2.6 % (0.0-8.0); HEMATOCRIT 49.3 % (42-54); IMMATURE GRANULOCYTE ABSOLUTE 0.07 K/uL (0-1); LYMPHOCYTES # (AUTO) 1.9 K/uL (1.0-4.8); LYMPHOCYTES % (AUTO) 21.3 % (21.0-51.0); MEAN CORPUSCULAR HEMOGLOBIN 30.2 pg (27.0-33.0); MEAN CORPUSCULAR HGB CONC 34.1 g/dL (32.0-36.0); MEAN CORPUSCULAR VOLUME 88.7 fL (79-99); MONOCYTES # (AUTO) 0.5 K/uL (0.1-1.0); MONOCYTES % (AUTO) 5.7 % (3.0-13.0); NEUTROPHILS # (AUTO) 6.1 K/uL (1.8-7.7); NEUTROPHILS % (AUTO) 68.4 % (40.0-77.0); PLATELET COUNT (AUTO) 272 K/uL (130-400); RED BLOOD CELL COUNT(AUTO) 5.56 MIL/uL (4.50-6.20); RED CELL DISTRIBUTION WIDTH 12.8 % (11.0-15.5); WHITE BLOOD COUNT (AUTO) 8.9 K/uL (4.8-10.8)
[2023-06-12 11:57] LABS: CREATININE 1.7 mg/dL (0.5-1.5); POTASSIUM 4.4 mmol/L (3.5-5.1)
[2023-06-12 12:02] LABS: ALBUMIN 4.3 g/dL (3.5-5.0); BILIRUBIN,TOTAL 0.3 mg/dL (0.2-1.0); TOTAL PROTEIN, SERUM 8.7 g/dL (6.0-8.3)
[2023-06-12 12:17] LABS: INR < 0.93 (0.85-1.15); PROTHROMBIN TIME 10.2 SEC (9.6-11.6)
[2023-06-12 12:18] LABS: PARTIAL THROMBOPLASTIN TIME 31.9 SEC (26.3-35.5)
[2023-06-12 12:41] LABS: B-TYPE NATRIURETIC PEPTIDE 60 pg/mL (0-100)
[2023-06-12 13:18] VITALS: BP 182/98; PULSE 64; RESP 18; O2SAT 99
== END 2023-06-12 13:59 | disposition short-term general hospital (02) ==
LOC: EDH 11:17
DX: R42 Dizziness and giddiness (principal); R20.0 Anesthesia of skin; I10 Essential (primary) hypertension; E11.9 Type 2 diabetes mellitus without complications; E78.00 Pure hypercholesterolemia, unspecified; F17.200 Nicotine dependence, unspecified, uncomplicated; Z79.899 Other long term (current) drug therapy; Z98.890 Other specified postprocedural states; Z88.6 Allergy status to analgesic agent; Z88.8 Allergy status to other drugs, medicaments and biological substances
CPT/HCPCS: 36415; 70450; 71045; 80053; 82550; 82948; 83721; 83880; 84484; 85025; 85610; 85730; 93005; 96374